=== PATIENT | female | born 1995 | race Caucasian/White ===

== ENCOUNTER → 2016-06-25 | Outpatient (CLI) | payer OTHER ==
[2016-06-25 14:25] LABS: LUTEINIZING HORMONE 11.5 mIU/mL
[2016-06-25 14:26] LABS: FOLLICLE STIMULATING HORMONE 5.9 mIU/mL
[2016-06-25 14:30] LABS: FREE T4 1.04 NG/DL (0.76-1.46)
== END ==
LOC: M SMT 08:24
PROVIDERS: ATTEND Family Medicine
DX: E66.09 Other obesity due to excess calories (principal)

== ENCOUNTER → 2016-08-14 | Outpatient (CLI) | payer OTHER ==
[~2016-08-14] VITALS: Ht 167.6 cm; Wt 116.1 kg
[~2016-08-14] MED LIST: FLUT1POW2; LIDOCAINE 2% INJ 100 MG/5 ML SDV (FOR ANES.) As Ordered ONE; METF500T PO; NS 1,000 ML IV SCH; PROPOFOL 200 MG/20 ML VIAL As Ordered ONE
--- NOTE | 2016-08-14 10:18 | ROOR ---
Patient Name: Verenice Lovett Procedure Date: 08/14/2016 10:02 AM Date of : 1995 Age: 20 Room: [facility] Gender: Female Note Status: Finalized Procedure: Colonoscopy Indications: Rectal bleeding Providers: Michael Reddy Jr, MD Referring MD: Fadumo YOUNG DO Requesting Provider: Medicines: Propofol per Anesthesia Complications: No immediate complications. Procedure: Pre-Anesthesia Assessment: - Prior to the procedure, a History and Physical was performed, and patient medications and allergies were reviewed. The patient is competent. The risks and benefits of the procedure and the sedation options and risks were discussed with the patient. All questions were answered and informed consent was obtained. Patient identification and proposed procedure were verified by the physician and the nurse in the pre-procedure area and in the procedure room. Mental Status Examination: alert and oriented. Airway Examination: normal oropharyngeal airway and neck mobility. Respiratory Examination: clear to auscultation. CV Examination: normal. ASA Grade Assessment: II - A patient with mild systemic disease. After reviewing the risks and benefits, the patient was deemed in satisfactory condition to undergo the procedure. The anesthesia plan was to use moderate sedation / analgesia (conscious sedation). Immediately prior to administration of medications, the patient was re-assessed for adequacy to receive sedatives. The heart rate, respiratory rate, oxygen saturations, blood pressure, adequacy of pulmonary ventilation, and response to care were monitored throughout the procedure. The physical status of the patient was re-assessed after the procedure. The Colonoscope was introduced through the anus and advanced to the cecum, identified by appendiceal orifice and ileocecal valve. The patient tolerated the procedure well. The quality of the bowel preparation was adequate and excellent. Findings: The rectum, sigmoid colon, descending colon, transverse colon, ascending colon, cecum, appendiceal orifice and ileocecal valve appeared normal. Impression: - The rectum, sigmoid colon, descending colon, transverse colon, ascending colon, cecum, appendiceal orifice and ileocecal valve are normal. - No specimens collected. Recommendation: - Discharge patient to home (ambulatory). - Repeat colonoscopy at age 48 for screening purposes. Michael Reddy MD Michael Reddy Jr, MD 08/14/2016 10:18:28 AM This report has been signed electronically. Number of Addenda: 0 Note Initiated On: 08/14/2016 10:02 AM Estimated Blood Loss: Estimated blood loss: none.
[2016-08-14 10:40] VITALS: BP 129/83
== END | disposition home or self-care (01) ==
LOC: M OPP 09:23
PROVIDERS: ATTEND Surgery
DX: K62.5 Hemorrhage of anus and rectum (principal); K59.00 Constipation, unspecified; R12 Heartburn; R06.02 Shortness of breath; E28.2 Polycystic ovarian syndrome; E66.9 Obesity, unspecified; Z79.84 Long term (current) use of oral hypoglycemic drugs; Z79.899 Other long term (current) drug therapy; Z80.51 Family history of malignant neoplasm of kidney; Z80.3 Family history of malignant neoplasm of breast; Z80.49 Family history of malignant neoplasm of other genital organs

== ENCOUNTER → 2016-09-03 | Outpatient (CLI) | payer OTHER ==
[~2016-09-03] MED LIST changes: -LIDOCAINE 2% INJ 100 MG/5 ML SDV (FOR ANES.) As Ordered ONE; -NS 1,000 ML IV SCH; -PROPOFOL 200 MG/20 ML VIAL As Ordered ONE
--- NOTE | 2016-09-03 10:49 | REP ---
Right thumb series: Four views. History: Pain. Findings: Four views of the right thumb demonstrate normal bones, joints, and soft tissues. No fracture, subluxation or other acute bony abnormality. Impression: Negative right thumb series. Signed by José Miguel Salvador MD 09/03/2016 11:17 A
== END ==
LOC: M SMT 09:43
PROVIDERS: ATTEND Physician Assistant Medical
DX: M79.644 Pain in right finger(s) (principal)